=== PATIENT | female | born 1985 | race Caucasian/White ===

== ENCOUNTER 2018-03-22 16:58 | Observation (INO) | payer MEDICAID ==
[~2018-03-22] VITALS: Ht 165.1 cm; Wt 72.6 kg
[2018-03-22] MEDS ORDERED: PNV1TABL50 PO (17:39)
== END 2018-03-22 18:10 | disposition home or self-care (01) ==
LOC: L&D 16:58
PROVIDERS: ADMIT Specialist; ATTEND Specialist
DX: O42.913 Preterm premature rupture of membranes, unspecified as to length of time between rupture and onset of labor, third trimester (principal); O62.9 Abnormality of forces of labor, unspecified; Z3A.37 37 weeks gestation of pregnancy
CPT/HCPCS: 99281; G0378